=== PATIENT | male | born 1965 | race Caucasian/White ===

== ENCOUNTER 2016-08-07 08:17 | Outpatient (CLI) | payer OTHER ==
[~2016-08-07] VITALS: Ht 177.8 cm; Wt 79.4 kg
[2016-08-07] VITALS (10 sets, daily range): BP systolic 129–154; BP diastolic 64–85
[2016-08-07] MEDS ORDERED: ADAL40PE SQ (08:31)
[2016-08-07] MEDS ORDERED: ROPI1TAB PO (08:31)
[2016-08-07] MEDS ORDERED: CRESTOR5 MG PO (08:31)
[2016-08-07] MEDS ORDERED: ESOM40CA PO (08:31)
[2016-08-07] MEDS ORDERED: FENO160T PO (08:31)
[2016-08-07] MEDS ORDERED: LIDOCAINE 1% / SOD BICARB 8.4% 20 ML VIAL. IJ ONE ×2 (09:03→09:45)
[2016-08-07 09:04] LABS: BASO # 0.1 x10^3/uL (0.0-0.2); BASO % 1 % (0-3); EOS % 4 % (0-3); HEMATOCRIT 40.8 % (39.0-53.0); HEMOGLOBIN 13.7 g/dL (13.0-17.5); LYMPH % 33 % (24-48); MEAN CORPUSCULAR HEMOGLOBIN 31 pg (25-35); MEAN CORPUSCULAR HGB CONC 34 g/dL (31-37); MEAN CORPUSCULAR VOLUME 93 fL (79-100); MONO % 8 % (0-9); NEUT % 54 % (31-73); PLATELET COUNT 160 x10^3/uL (140-400); RED BLOOD COUNT 4.38 x10^6/uL (4.30-5.70); RED CELL DISTRIBUTION WIDTH 12.5 % (11.5-14.5)
[2016-08-07 09:19] LABS: INR 1.1 (0.8-1.1); PROTHROMBIN TIME PATIENT 13.7 SEC (11.7-14.0)
[2016-08-07] MEDS ORDERED: FENTANYL PF 100 MCG/2 ML VIAL. ONE (09:35)
[2016-08-07] MEDS ORDERED: MIDAZOLAM HCL/PF 2 MG/2 ML VIAL. ONE (09:35)
[2016-08-07] MEDS ORDERED: FENTANYL PF 100 MCG/2 ML VIAL. IV ONE (09:45)
[2016-08-07] MEDS ORDERED: MIDAZOLAM HCL/PF 2 MG/2 ML VIAL. IV ONE (09:45)
--- NOTE | 2016-08-07 09:55 | PDOC ---
MODERATE SEDATION ASSESSMENT RISKS/ALTERNATIVES Risks/Alternatives Risks and alternatives of this type of sedation and procedure discussed with: RISK/ALTERNATIVES: Patient H & P ON CHART H & P H & P on chart and reviewed for co-morbid conditions and appropriate labs. H&P ON CHART: Yes STATUS PREG STATUS ASSESSED: N/A MEDS/ALLERGIES REVIEWED Meds/Allergies Reviewed Medications and Allergies including time and route of recently administered narcotics and sedatives. MEDS/ALLERGIES REVIEWED: Yes ASA RATING ASA RATING: I AIRWAY ASSESSMENT Airway Assessment Airway patency, oral function limitations, presence of caps, crowns, dentures, partials, and ability to extend neck assessed. AIRWAY ASSESSMENT: Yes MALLAMPATI SCORE MALLAMPATI SCORE: II PRE-SEDATION ASSESSMENT PRE-SEDATION ASSESSMENT: Yes BRIANNA KENT MD Aug 07, 2016 09:54
--- NOTE | 2016-08-07 09:59 | PDOC1 ---
History and Physical Date of Procedure Date of Admission 08/07/16 Procedure Procedure Sono guided liver bx Indication Indication 50 YO male with elevated LFTs, with fatty liver by U/S, and with clinical suspicion of Wily's disease. Past Medical History Past Medical History See Nursing Pre Procedure PMH Past Surgical History Past Surgical History See Nursing Pre Procedure PSH Current Medications Current Medications Current Medications Lidocaine/Sodium Bicarbonate (Buffered Lidocaine 1%) 20 ml STK-MED ONCE IJ ; Start 08/07/16 at 09:03; Stop 08/07/16 at 09:04; Status DC Fentanyl Citrate (Fentanyl 2ml Vial) 100 mcg STK-MED ONCE .ROUTE ; Start at 09:35; Stop 08/07/16 at 09:36; Status DC Midazolam HCl (Versed) 2 mg STK-MED ONCE .ROUTE ; Start 08/07/16 at 09:35; Stop 08/07/16 at 09:36; Status DC Lidocaine/Sodium Bicarbonate (Buffered Lidocaine 1%) 3 ml 1X ONCE IJ Last administered on 08/07/16 09:49; Start 08/07/16 at 09:45; Stop 08/07/16 at 09:46 ; Status DC Midazolam HCl (Versed) 1 mg 1X ONCE IV Last administered on 08/07/16 09:49; Start 08/07/16 at 09:45; Stop 08/07/16 at 09:46; Status DC Fentanyl Citrate (Fentanyl 2ml Vial) 50 mcg 1X ONCE IV Last administered on 09:49; Start 08/07/16 at 09:45; Stop 08/07/16 at 09:46; Status DC Active Scripts Active Reported Nexium Capsule (Esomeprazole Magnesium) 40 Mg Capsule.dr 40 Mg PO DAILYAC Humira (Adalimumab) 40 Mg/0.8 Ml Pen.ij.kit 40 Mg SQ Requip (Ropinirole Hcl) 1 Mg Tablet 1 Mg PO DAILY Fenofibrate 160 Mg Tablet 160 Mg PO DAILY Crestor (Rosuvastatin Calcium) 5 Mg Tablet 5 Mg PO HS Allergies Allergies: Coded Allergies: No Known Drug Allergies (Unverified , 08/07/16) Physical Exam Vital Signs Vital Signs Date Time Temp Pulse Resp B/P Pulse Ox O2 Delivery O2 Flow Rate FiO2 08/07/16 09:49 14 96 Nasal Cannula 2.0 08/07/16 09:46 70 08/07/16 08:45 97.9 143/83 97.9 Lungs: Clear to auscultation Heart: Regular rate Psych/Mental Status: Mental status NL Assessment Assessment 50 YO male with elevated LFTs, with fatty liver by U/S, and with clinical suspicion of Wily's disease Problems: Plan Plan U/S guided liver bx BRIANNA KENT MD Aug 07, 2016 09:59
--- NOTE | 2016-08-07 10:02 | PDOC ---
Exam [employer] Jose Francisco Pre-Procedure Diagnosis Pre-Procedure Diagnosis 50 YO male with abnormal LFTs, with fatty liver by U/S, and with clinical suspicion of Wily's disease Post-Procedure Diagnosis Post-Procedure Diagnosis Same Procedure Performed Procedure Performed U/S guided rt lobe liver bx Type of Anesthesia Type of Anesthesia Local + mod sedation Estimated Blood Loss EBL: Trace Specimens Specimans 3 18G core bx to path in formalin Condition of Patient Condition of Patient Stable. No apparent complication. Disposition Disposition Home from [facility] post recovery, if no bleeding or other problem. F/u with Dr Herbert. Full report to follow. BRIANNA KENT MD Aug 07, 2016 10:02
--- NOTE | 2016-08-08 08:04 | RAD ---
Ultrasound-guided liver biopsy Indication: 50-year-old male with elevated LFTs, with fatty liver by ultrasound, and with clinical suspicion of Wily's disease. Ultrasound-guided liver biopsy has been requested. Anesthesia: 12 minutes moderate sedation was provided utilizing a total of 1 mg Versed and 50 mcg fentanyl, IV. The patient was appropriately monitored by a qualified independent observer throughout the time of moderate sedation. Consent: The procedure was explained in its entirety to the patient and/or the patient's designated underwriting service representative by a member of the treatment team. This included a discussion of risks and benefits and acceptable alternatives to the procedure, as well as expected consequences of no treatment at all. Discussion of risks included, but was not limited to, those that are most frequent and those that are rare, but possibly severe or life-threatening, as well as the possibility of unforeseen complications. Procedure: Informed consent was obtained from the patient. Preliminary ultrasound evaluation was performed over liver. A skin site suitable for ultrasound-guided biopsy of right lobe of liver was selected and marked. That area was prepped and draped in the usual sterile fashion. Conscious sedation was provided with IV Versed and fentanyl. Using aseptic technique, local anesthesia, and direct ultrasound guidance, a 17-gauge guide needle was successfully introduced into posterior segment right lobe of liver. Three 18-gauge core biopsy samples were then obtained and were submitted in formalin to pathology. Hemostasis was achieved with autologous clot introduced through the biopsy guide needle, which was then removed. A sterile dressing was applied. Patient tolerated the procedure well without apparent complication. Impression: Successful, uneventful ultrasound-guided liver biopsy, as described.
== END 2016-08-07 11:51 | disposition home or self-care (01) ==
LOC: INTRAD 08:17
PROVIDERS: ATTEND Internal Medicine
DX: E83.01 Wilson's disease (principal); K21.9 Gastro-esophageal reflux disease without esophagitis; Z79.01 Long term (current) use of anticoagulants
CPT/HCPCS: 36415; 47000; 76942; 85027; 85610; J2250; J3010

== ENCOUNTER → 2017-01-04 | Outpatient (CLI) | payer OTHER ==
[2016-08-07 11:30] VITALS: BP 149/77
[~2017-01-04] MED LIST: ADAL40PE SQ; CRESTOR5 MG PO; ESOM40CA PO; FENO160T PO; ROPI1TAB PO
--- NOTE | 2017-01-04 15:07 | KCIC ---
Indication: Left foot pain and swelling. Time of exam 2:38 PM 3 views of the left foot were obtained. The metatarsals appear intact. No periosteal reaction or stress reaction is identified. The phalanges appear intact. The midfoot and hindfoot are unremarkable. IMPRESSION: No acute bony abnormality is detected. Electronically signed by: Brody Wang MD (01/04/2017 3:04 PM) [id number]
== END | disposition home or self-care (01) ==
LOC: KCIC 14:26
PROVIDERS: ATTEND Internal Medicine
DX: M79.672 Pain in left foot (principal); M79.89 Other specified soft tissue disorders
CPT/HCPCS: 73630

== ENCOUNTER → 2017-05-08 | Outpatient (CLI) | payer OTHER | END | disposition home or self-care (01) | LOC: KCIC US 07:55 | DX: K76.0 Fatty (change of) liver, not elsewhere classified (principal) | CPT/HCPCS: 76700 ==

== ENCOUNTER → 2018-12-09 | Outpatient (CLI) | payer BC, OTHER ==
[2016-08-07 11:30] VITALS: BP 149/77
--- NOTE | 2018-12-09 09:07 | KCIC ---
COMPLETE ABDOMINAL ULTRASOUND Clinical History: Fatty liver determined by biopsy 2017. Comparison: Complete abdominal ultrasound May 08, 2017. Technique: Sonographic examination of the abdomen was performed and multiple grayscale and color Doppler static images were obtained. Findings: The liver is increased in echogenicity. There is decreased through-transmission. The liver measures 17.2 cm. Ultrasound is not sensitive for detecting solid liver lesions. Portal flow is hepatopetal. The common bile duct is normal in caliber, measuring 6 mm in diameter. The gallbladder is contracted, limiting evaluation. No obvious gallbladder wall thickening. Per report, sonographic Weaver sign is negative. There is no cholelithiasis or pericholecystic fluid. Due to overlying bowel gas midline structures including the pancreas, abdominal aorta, and IVC are mostly obscured. The right kidney is normal in echotexture and measures 11.3 cm. The left kidney is normal in echotexture and measures 12 cm. Corticomedullary differentiation is preserved. There is no hydronephrosis. The spleen is upper limits of normal in size measuring 12.7 cm. IMPRESSION: 1. Midline structures are obscured due to overlying bowel gas. 2. Fatty infiltration of the liver. Electronically signed by: Jose Moscoso MD (12/09/2018 9:05 AM) [id number]
== END | disposition home or self-care (01) ==
LOC: KCIC US 07:40
PROVIDERS: ATTEND Internal Medicine
DX: K76.0 Fatty (change of) liver, not elsewhere classified (principal); N32.89 Other specified disorders of bladder
CPT/HCPCS: 76700

== ENCOUNTER → 2019-12-15 | Outpatient (CLI) | payer BC ==
[2016-08-07 11:30] VITALS: BP 149/77
--- NOTE | 2019-12-15 08:06 | RAD ---
EXAM: Abdomen sonogram. HISTORY: Fatty liver. TECHNIQUE: Sonographic imaging of the abdomen was performed. COMPARISON: 12/09/2018. FINDINGS: The liver is enlarged. There is hepatic steatosis. No focal hepatic lesion is seen. The gallbladder is unremarkable. The common bile duct is normal in caliber for patient age. The kidneys and pancreas are unremarkable. The spleen is mildly enlarged, measuring 14.0 cm. The aorta and inferior vena cava are obscured due to bowel gas and body habitus. IMPRESSION: 1. Hepatomegaly and hepatic steatosis. 2. Mild splenomegaly. 3. Limited evaluation of the midline structures due to body habitus and bowel gas. Electronically signed by: Amanda Mendoza MD (12/15/2019 8:03 AM) [facility]
== END | disposition home or self-care (01) ==
LOC: US 06:51
PROVIDERS: ATTEND Internal Medicine
DX: K76.0 Fatty (change of) liver, not elsewhere classified (principal); R16.2 Hepatomegaly with splenomegaly, not elsewhere classified; K76.9 Liver disease, unspecified
CPT/HCPCS: 76700

== ENCOUNTER → 2020-06-16 | Outpatient (CLI) | payer BC ==
[2016-08-07 11:30] VITALS: BP 149/77
--- NOTE | 2020-06-16 15:52 | KCIC ---
XR BILATERAL HIP (WITH OR WITHOUT PELVIS) LEFT 2 VIEWS History: Reason: Left hip pain 3 weeks, hx. arthritis. / Spl. Instructions: / History: Comparison: None. Technique: AP pelvis with cone-down frog-leg lateral and AP views of the left hip. Findings: Normal mineralization. No fracture or dislocation. Minimal bilateral femoral acetabular joint space n arrowing. Sacroiliac joints are unremarkable. Soft tissues are within normal limits. Impression: 1. Minimal degenerative changes of the bilateral hips. No acute osseous abnormality. Electronically signed by: Tirso Baer MD (06/16/2020 3:49 PM) [facility]
== END ==
LOC: KCIC 12:46
PROVIDERS: ATTEND Internal Medicine Rheumatology
DX: M16.0 Bilateral primary osteoarthritis of hip (principal); M25.552 Pain in left hip
CPT/HCPCS: 73502

== ENCOUNTER → 2020-11-01 | Outpatient (CLI) | payer BC ==
[2016-08-07 11:30] VITALS: BP 149/77
--- NOTE | 2020-11-01 13:12 | KCIC ---
EXAMINATION: MRI LEFT LOWER EXTREMITY JOINT WITHOUT INDICATIONS: Left hip pain since May 2020. Painful to bear weight. No known injury TECHNIQUE: Multiplanar multisequence MRI of the left hip was obtained without contrast. COMPARISON: None. FINDINGS: BONES AND CARTILAGE: There is subchondral marrow signal abnormality in the left femoral head involvin g at least two thirds of the femoral head articular surface, with extensive marrow edema extending in to the femoral head and neck. This is consistent with avascular necrosis. There is a crescentic T2 hy perintense subchondral line consistent with subchondral collapse. There is a smaller amount of subchondral signal abnormality in the anterior superior right femoral he ad without associated marrow edema in the head and neck. This is also consistent with avascular necro sis and is only seen on large field of view coronal STIR series. There is mild marrow edema in the ri ght acetabulum, reactive. Mild degenerative joint disease of the pubic symphysis. Sacroiliac joints a re normal. LABRUM: There is an anterior superior labral tear. MUSCLES, TENDONS, AND BURSAE: The gluteus medius and minimus, iliopsoas, rectus femoris, and adductor tendons are intact. Mild left hamstrings tendinopathy. Muscles are normal. The ischiofemoral space i s normal. No bursitis. OTHER: Moderate left and small right hip joint effusions. IMPRESSION: 1. 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 2. Milder avascular necrosis of the right femoral head, incompletely evaluated only seen on large fie ld of view series. 3. Anterior superior labral tear. 4. Bilateral hip joint effusions. Electronically signed by: Jerri Suazo MD (11/01/2020 1:09 PM) [id number]
== END ==
LOC: KCIC MRI 08:10
PROVIDERS: ATTEND Internal Medicine Rheumatology
DX: M16.12 Unilateral primary osteoarthritis, left hip (principal); M25.452 Effusion, left hip; M25.451 Effusion, right hip; S43.432A Superior glenoid labrum lesion of left shoulder, initial encounter; M87.88 Other osteonecrosis, other site; X58.XXXA Exposure to other specified factors, initial encounter; Y93.89 Activity, other specified; Y92.89 Other specified places as the place of occurrence of the external cause; Y99.8 Other external cause status
CPT/HCPCS: 73721